=== PATIENT | male | born 1965 | race African-American/Black ===

== ENCOUNTER 2022-03-17 13:06 | Emergency (ER) | payer MEDICAID, OTHER ==
[~2022-03-17] VITALS: Ht 165.1 cm; Wt 82.0 kg
[2022-03-17 13:07] VITALS: BP 138/78
[2022-03-17] MEDS ORDERED: LIDOCAINE HCL/EPINEPHRINE 1%-EPI 1:100,000 20 ML VIAL INFIL ONE (13:45)
[2022-03-17] MEDS ORDERED: BACITRACIN ZINC OINT UDPKT TOP ONE (13:45)
== END 2022-03-17 16:13 | disposition home or self-care (01) ==
LOC: ER 13:41
DX: S61.411A Laceration without foreign body of right hand, initial encounter (principal); X99.8XXA Assault by other sharp object, initial encounter; Y07.59 Other non-family member, perpetrator of maltreatment and neglect; Y93.89 Activity, other specified; Y92.89 Other specified places as the place of occurrence of the external cause; Y99.0 Civilian activity done for income or pay
CPT/HCPCS: 12004; 99283; J3490; Z7610

== ENCOUNTER 2022-03-19 14:37 | Emergency (ER) | payer MEDICAID, OTHER ==
[~2022-03-19] VITALS: Ht 180.3 cm; Wt 91.0 kg
[2022-03-19 15:08] VITALS: BP 134/84
[2022-03-19] MEDS ORDERED: CEPH500T PO (17:57)
== END 2022-03-19 18:15 | disposition home or self-care (01) ==
LOC: ER 15:20
DX: L03.113 Cellulitis of right upper limb (principal); Z48.00 Encounter for change or removal of nonsurgical wound dressing
CPT/HCPCS: 99283

== ENCOUNTER 2022-03-31 11:28 | Emergency (ER) | payer OTHER ==
[~2022-03-31] VITALS: Ht 180.3 cm; Wt 86.0 kg
[~2022-03-31 11:28] MED LIST: CEPH500T PO
[2022-03-31 11:45] VITALS: BP 133/64
== END 2022-03-31 12:54 | disposition home or self-care (01) ==
LOC: ER 12:27
DX: S61.412D Laceration without foreign body of left hand, subsequent encounter (principal); X58.XXXD Exposure to other specified factors, subsequent encounter; F20.9 Schizophrenia, unspecified
CPT/HCPCS: 99281; Z7610